=== PATIENT | female | born 1995 | race Caucasian/White ===

== ENCOUNTER 2017-02-08 21:16 | Emergency (ER) | payer OTHER ==
--- NOTE | 2017-02-08 21:47 | UC ---
Upper Extremity HPI - HPI Summary HPI Summary: 21 year old female presents with complains of right shoulder pain. - History of Current Complaint Chief Complaint: UCUpperExtremity Stated Complaint: RIGHT ARM NUMBNESS/TINGLING Time Seen by Provider: 02/08/17 21:22 Hx Last Menstrual Period: 01/31/17 - Allergies/Home Medications Allergies/Adverse Reactions: Allergies Allergy/AdvReac Type Severity Reaction Status Date / Time No Known Allergies Allergy Verified 02/08/17 21:24 Home Medications: Home Medications ARIPiprazole TAB* [Abilify TAB*] 2 mg PO DAILY 02/08/17 [History Confirmed 01/18] Cetirizine* [ZyrTEC 10 MG TAB*] 10 mg PO DAILY 02/08/17 [History Confirmed 02/08] Oral Contraceptives DAILY 02/08/17 [History] PMH/Surg Hx/FS Hx/Imm Hx Previously Healthy: Yes - Surgical History Surgical History: Yes Surgery Procedure, Year, and Place: T&A. Appy. [place] teeth - Social History Alcohol Use: None Substance Use Type: None Smoking Status (MU): Never Smoked Tobacco Review of Systems Constitutional: Negative Skin: Negative Eyes: Negative ENT: Negative Respiratory: Negative Cardiovascular: Negative Gastrointestinal: Negative Genitourinary: Negative Motor: Negative Neurovascular: Negative Musculoskeletal: Myalgia, Other: - right shoulder pain Neurological: Negative Psychological: Negative All Other Systems Reviewed And Are Negative: Yes Physical Exam Triage Information Reviewed: Yes Vital Signs: Initial Vital Signs Temp 37.4 C 02/08/17 21:19 Pulse 96 02/08/17 21:19 Resp 16 02/08/17 21:19 BP 137/78 02/08/17 21:19 Pulse Ox 99 02/08/17 21:19 Eye Exam: Normal ENT Exam: Normal Dental Exam: Normal Neck exam: Normal Neck: Positive: 1 Respiratory Exam: Normal Cardiovascular Exam: Normal Abdominal Exam: Normal Musculoskeletal Exam: Normal Musculoskeletal: Positive: Strength Limited @, ROM Limited @, Other: - right shoulder pain Neurological Exam: Normal Psychological Exam: Normal Skin Exam: Normal Upper Extremity Course/Dx - Differential Dx/Diagnosis Provider Diagnoses: right shoulder pain Discharge - Discharge Plan Condition: Stable Disposition: HOME Prescriptions: Meloxicam [Mobic] 7.5 mg PO BID #30 tab Methocarbamol TAB* [Robaxin 500 MG TAB*] 500 mg PO TID PRN #30 tab PRN Reason: Spasms Patient Education Materials: Acromioclavicular Separation (ED), Shoulder Pain ( ED) Referrals: Danny Mak MD [Medical Doctor] -
[2017-02-08] MEDS ORDERED: Ibuprofen TAB* 400 MG PO ONE (21:50)
[2017-02-08] MEDS ORDERED: Methocarbamol TAB* 500 MG PO ONE (21:52)
[2017-02-08] MEDS ORDERED: Carisoprodol TAB* 350 MG PO ONE (22:01)
--- NOTE | 2017-02-08 22:08 | RAD ---
INDICATION: Right shoulder pain since feeling a "pop" and report COMPARISON: None. TECHNIQUE: 4 views of the right shoulder were obtained. FINDINGS: The adequately corticated bones are in normal alignment. Joint spaces appear maintained. No fracture, dislocation or focal bony abnormality is seen. IMPRESSION: Normal radiograph of the right shoulder. If the patient's symptoms persist, follow-up imaging is recommended.
== END 2017-02-08 22:17 | disposition home or self-care (01) ==
LOC: UCCORT 21:16
DX: M25.511 Pain in right shoulder (principal); R20.0 Anesthesia of skin
CPT/HCPCS: 99203; A9270-GY; G0463

== ENCOUNTER 2019-07-20 12:47 | Emergency (ER) | payer BC, OTHER ==
[2019-07-20 14:52] VITALS: BP 125/71
--- NOTE | 2019-07-20 15:05 | UC ---
FLU HPI - HPI Summary HPI Summary: 24-year-old female who started extrinsic flulike symptoms last evening with body aches, fever, chills, scratchy throat, dry cough, headache. - History of Current Complaint Chief Complaint: UCGeneralIllness Stated Complaint: BODY ACHES,HEADACHE,NAUSEA,ST Time Seen by Provider: 07/20/19 14:38 Hx Obtained From: Patient Hx Last Menstrual Period: 07/13/19 ?: No Onset/Duration: Sudden Onset Severity Currently: Moderate Severity Initially: Moderate Pain Intensity: 4 Associated Signs & Symptoms: Positive: Fever, Myalgia, Cough - Dry nonproductive cough, Sore Throat - Scratchy throat, Nasal Congestion - Runny nose, Headache - Headache Related Hx: Possible Flu/Infectious Exposure - She works in an elementary school. - Allergy/Home Medications Allergies/Adverse Reactions: Allergies Allergy/AdvReac Type Severity Reaction Status Date / Time No Known Allergies Allergy Verified 07/20/19 14:46 Home Medications: Home Medications Fexofenadine/Pseudoephedrine [Lindsay-D 24 Hour Tablet] 1 tab PO DAILY 07/20/19 [History Confirmed 07/20/19] Ibuprofen TAB* [Advil TAB*] 2 tab PO ONCE 07/20/19 [History Confirmed 07/20/19] Pseudoephedrine HCl [Sudafed] 1 tab PO ONCE 07/20/19 [History Confirmed 07/20/19 ] PMH/Surg Hx/FS Hx/Imm Hx Previously Healthy: Yes - Surgical History Surgical History: Yes Surgery Procedure, Year, and Place: T&A. Appendectomy. [place] teeth - Family History Known Family History: Positive: Other Negative: Hypertension, Diabetes - Social History Occupation: Employed Full-time Lives: With Family Alcohol Use: None Substance Use Type: None Smoking Status (MU): Never Smoked Tobacco Review of Systems All Other Systems Reviewed And Are Negative: Yes Constitutional: Positive: Fever, Chills ENT: Positive: Sore Throat - Scratchy throat, Nasal Discharge - Clear nasal coryza Respiratory: Positive: Cough - Dry nonproductive cough Musculoskeletal: Positive: Myalgia Neurological: Positive: Headache - Mild headache Is Patient Immunocompromised?: No Physical Exam Triage Information Reviewed: Yes Appearance: Well-Appearing, No Pain Distress, Well-Nourished Vital Signs: Initial Vital Signs Temp 99 F 07/20/19 14:48 Pulse 97 01/16/20 14:48 Resp 14 07/20/19 14:48 BP 125/71 07/20/19 14:48 Pulse Ox 99 07/20/19 14:48 Vital Signs Reviewed: Yes Eyes: Positive: Conjunctiva Clear ENT: Positive: Hearing grossly normal, Pharynx normal, TMs normal, Uvula midline Neck: Positive: Supple, Nontender, No Lymphadenopathy Respiratory: Positive: Lungs clear, Normal breath sounds, No respiratory distress, No accessory muscle use Cardiovascular: Positive: RRR, No Murmur, Pulses Normal, Brisk Capillary Refill Musculoskeletal Exam: Normal Neurological Exam: Normal Psychological Exam: Normal Skin Exam: Normal Flu Course/Dx - Course Course Of Treatment: Rapid influenza test: Negative Patient is comfortable here and nontoxic. - Differential Dx/Diagnosis Provider Diagnosis: Flu-like symptoms Discharge ED - Sign-Out/Discharge Documenting (check all that apply): Patient Departure All imaging exams completed and their final reports reviewed: No Studies - Discharge Plan Condition: Fair Disposition: HOME Patient Education Materials: Upper Respiratory Infection (ED) Forms: *Work Release Referrals: [facility] [Outside] No Primary Care Phys,NOPCP [Primary Care Provider] - Additional Instructions: Increase fluids, may take [id number] cold medicine as directed, follow-up with your primary care provider or [facility] if no improvement in 3 or 4 days - Billing Disposition and Condition Condition: FAIR Disposition: Home - Attestation Statements Provider Attestation: This patient was not seen by me I was available for consult Chart reviewed GONZALEZ
[2019-07-20 15:25] LABS: Influenza A Molecular NEGATIVE (Negative); Influenza B Molecular NEGATIVE (Negative)
== END 2019-07-20 15:43 | disposition home or self-care (01) ==
LOC: UCCORT 12:47
DX: J02.9 Acute pharyngitis, unspecified (principal); R50.9 Fever, unspecified; M79.10 Myalgia, unspecified site; R05 Cough; R51 Headache; R09.81 Nasal congestion
CPT/HCPCS: 99211; G0463

== ENCOUNTER 2019-07-25 15:49 | Emergency (ER) | payer BC ==
--- NOTE | 2019-07-25 16:27 | UC ---
FLU HPI - HPI Summary HPI Summary: 24 yo female presents with URI symptoms. She tells me that she was seen here a few days ago and flu test was negative. Had similar symptoms at that time, but states cough is worse. She has been feeling feverish, but has not taken her temperature. Mild sinus congestion. Has been taking ibuprofen and pedro luis with little relief. Denies sore throat, SOB, chest pain, abdominal pain, n/v. - History of Current Complaint Stated Complaint: ACHY/UPSET STOMACH/COUGH/CONGESTION Time Seen by Provider: 07/25/19 16:26 Hx Obtained From: Patient Hx Last Menstrual Period: 07/13/19 Onset/Duration: Gradual Onset Severity Currently: Moderate Severity Initially: Moderate Pain Intensity: 5 Pain Scale Used: 0-10 Numeric - Allergy/Home Medications Allergies/Adverse Reactions: Allergies Allergy/AdvReac Type Severity Reaction Status Date / Time No Known Allergies Allergy Verified 07/25/19 16:46 PMH/Surg Hx/FS Hx/Imm Hx - Additional Past Medical History Additional PMH: None - Surgical History Surgical History: Yes Surgery Procedure, Year, and Place: T&A. Appendectomy. [place] teeth - Family History Known Family History: Positive: Other Negative: Hypertension, Diabetes - Social History Lives: With Family Alcohol Use: None Substance Use Type: None Smoking Status (MU): Never Smoked Tobacco Review of Systems All Other Systems Reviewed And Are Negative: No Constitutional: Positive: Negative Skin: Positive: Negative Eyes: Positive: Negative ENT: Positive: Sinus Congestion, Sinus Pain/Tenderness Respiratory: Positive: Cough Cardiovascular: Positive: Negative Gastrointestinal: Positive: Negative Neurological: Positive: Negative Psychological: Positive: Negative Physical Exam - Summary Physical Exam Summary: GENERAL: NAD. WDWN. No pain distress. SKIN: No rashes, sores, lesions, or open wounds. HEENT: Head: AT/NC Eyes: Conjunctiva clear without inflammation or discharge. Ears: Hearing grossly normal. TMs intact, no bulging, erythema, or edema. Nose: Nasal mucosa pink and moist. NTTP maxillary and frontal sinus. Throat: Posterior oropharynx without exudates, erythema, or tonsillar enlargement. Uvula midline. NECK: Supple. Nontender. No lymphadenopathy. CHEST: Mild wheezing throughout. No r/r. No accessory muscle use. Breathing comfortably and in no distress. CV: RRR. Pulses intact. Cap refill <2seconds NEURO: Alert. PSYCH: Age appropriate behavior. Triage Information Reviewed: Yes Vital Signs: Vital Signs: Temp Pulse Resp BP Pulse Ox 99.5 F 100 16 143/74 100 07/25/19 16:35 07/25/19 16:35 07/25/19 16:35 07/25/19 16:35 07/25/19 16:35 Vital Signs Reviewed: Yes Diagnostics - Radiology CXR Radiology Interpretation Completed By: Radiologist Summary of Radiographic Findings: IMPRESSION: #. Elevated lung volumes may reflect obstructive lung disease or simply exuberant inspiratory effort for examination in a young patient. #. No evidence for pneumonia. Flu Course/Dx - Course Course Of Treatment: CXR as above. Given her continued symptoms will treat with anbx at this time. - Differential Dx/Diagnosis Provider Diagnosis: Bronchitis Discharge ED - Sign-Out/Discharge Documenting (check all that apply): Patient Departure All imaging exams completed and their final reports reviewed: Yes - Discharge Plan Condition: Stable Disposition: HOME Prescriptions: Albuterol HFA INHALER* [Ventolin HFA Inhaler*] 1 puff INH Q6H PRN #1 mdi PRN Reason: Cough Azithromycin TAB* [Zithromax TAB (Z-MIRANDA) 250 mg #6 tabs] 2 tab PO .TODAY, THEN 1 DAILY #1 miranda Patient Education Materials: Acute Bronchitis (ED) Referrals: No Primary Care Phys,NOPCP [Primary Care Provider] - Additional Instructions: If you develop a fever, shortness of breath, chest pain, new or worsening symptoms - please call your PCP or go to the ED immediately. - Billing Disposition and Condition Condition: STABLE Disposition: Home
[2019-07-25 16:46] VITALS: BP 143/74
== END 2019-07-25 17:01 | disposition home or self-care (01) ==
LOC: UCCORT 15:49
DX: J40 Bronchitis, not specified as acute or chronic (principal); R09.81 Nasal congestion; J34.89 Other specified disorders of nose and nasal sinuses; J98.4 Other disorders of lung
CPT/HCPCS: 71046; 99212; G0463

== ENCOUNTER 2019-08-08 11:41 | Emergency (ER) | payer BC ==
[2019-08-08 12:08] VITALS: BP 120/70
--- NOTE | 2019-08-08 12:13 | UC ---
FLU HPI - HPI Summary HPI Summary: 24-year-old female presents with complaints of fever, nasal congestion, runny nose, sore throat, and occasional nonproductive cough that started yesterday. Denies headache, body aches, ear pain, dysphagia, chest pain, shortness of breath, abdominal pain, nausea, vomiting, or diarrhea. - History of Current Complaint Chief Complaint: UCRespiratory Stated Complaint: FLU/STREP TESTING Time Seen by Provider: 08/08/19 12:02 Hx Obtained From: Patient Hx Last Menstrual Period: 25 days ago Pain Intensity: 3 - Allergy/Home Medications Allergies/Adverse Reactions: Allergies Allergy/AdvReac Type Severity Reaction Status Date / Time environmental Allergy Eyes Uncoded 08/08/19 12:09 Itchy/Swollen/Red/Watery PMH/Surg Hx/FS Hx/Imm Hx Previously Healthy: Yes - Surgical History Surgical History: Yes Surgery Procedure, Year, and Place: T&A. Appendectomy. [place] teeth - Family History Known Family History: Positive: Non-Contributory - Social History Occupation: Employed Full-time Lives: Alone Alcohol Use: None Substance Use Type: None Smoking Status (MU): Never Smoked Tobacco Review of Systems All Other Systems Reviewed And Are Negative: Yes Constitutional: Positive: Fever Eyes: Negative: Drainage, Eye Redness ENT: Positive: Sore Throat, Nasal Discharge, Sinus Congestion, Sinus Pain/ Tenderness. Negative: Ear Ache Respiratory: Positive: Cough. Negative: Shortness Of Breath Cardiovascular: Negative: Palpitations, Chest Pain Gastrointestinal: Negative: Abdominal Pain, Vomiting, Diarrhea, Nausea Genitourinary: Positive: Negative Musculoskeletal: Positive: Negative Neurological: Positive: Negative Is Patient Immunocompromised?: No Physical Exam - Summary Physical Exam Summary: GENERAL APPEARANCE: Well developed, well nourished, alert and cooperative, and appears to be in no acute distress. EYES: Conjunctiva clear. No drainage. EARS: External auditory canals and tympanic membranes clear, hearing grossly intact. NOSE: Mild nasal congestion. No nasal discharge. THROAT: Mild pharyngeal erythema. Surgically absent tonsils. Uvula midline. NECK: Neck supple, non-tender without lymphadenopathy. CARDIAC: Normal S1 and S2. No S3, S4 or murmurs. Rhythm is regular. There is no peripheral edema, cyanosis or pallor. Extremities are warm and well perfused. Capillary refill is less than 2 seconds. Peripheral pulses intact. LUNGS: Clear to auscultation without rales, rhonchi, wheezing or diminished breath sounds. Cough is not observed. ABDOMEN: Positive bowel sounds. Soft, nondistended, nontender. No guarding or rebound. No masses or hepatosplenomegally. MUSKULOSKELETAL: ROM intact to all extremities. No joint erythema or tenderness. Normal muscular development. Normal gait. SKIN: Skin normal color, texture and turgor with no lesions or eruptions. Triage Information Reviewed: Yes Vital Signs: Initial Vital Signs Temp 98.3 F 08/08/19 12:04 Pulse 76 08/08/19 12:04 Resp 13 08/08/19 12:04 BP 120/70 08/08/19 12:04 Pulse Ox 100 08/08/19 12:04 Vital Signs Reviewed: Yes Flu Course/Dx - Course Course Of Treatment: 24-year-old female presents with complaints of fever, nasal congestion, runny nose, sore throat, and occasional nonproductive cough that started yesterday. Denies headache, body aches, ear pain, dysphagia, chest pain, shortness of breath, abdominal pain, nausea, vomiting, or diarrhea. Afebrile. Vital signs stable. Patient had mild nasal congestion, normal TMs, pharyngeal erythema, surgically absent tonsils, no cervical lymphadenopathy, clear bilateral breath sounds, and otherwise unremarkable exam. Rapid strep test and rapid flu test were negative. Reviewed results with the patient. Recommending symptomatic treatment for a viral breast or infection. She is to follow-up here or with primary care in 5-7 days if symptoms are not improving. Anticipatory guidance and warning symptoms reviewed with the patient. Verbalizes understanding and agrees with plan of care. - Differential Dx/Diagnosis Differential Diagnosis/HQI/PQRI: Bronchitis, Influenza, Pneumonia, Upper Respiratory Infection, Other - Tonsilitis, pharyngitis Provider Diagnosis: Viral upper respiratory infection Discharge ED - Sign-Out/Discharge Documenting (check all that apply): Patient Departure All imaging exams completed and their final reports reviewed: No Studies - Discharge Plan Condition: Stable Disposition: HOME Patient Education Materials: Upper Respiratory Infection (ED) Referrals: No Primary Care Phys,NOPCP [Primary Care Provider] - [facility] [place] [facility] [Outside] Additional Instructions: The rapid flu test and rapid strep test performed in the clinic today were negative. Your history and exam are consistent with a viral upper respiratory infection. Viral infections do not respond to antibiotics and are limited to the treatment of symptoms. Viral infections typically run their course in 7-10 days. Drink plenty of fluids to avoid dehydration especially if you are running any fever. Use a saline rinse kit such as Neti Pot or NeilMed at least twice a day to help thin secretions and promote drainage of the sinuses. Use fluticasone (Flonase) nasal spray 2 sprays each nostril once daily. Use an over the counter decongestant such as Sudafed according to directions for any nasal congestion. Take over the counter acetaminophen (Tylenol) or ibuprofen (Advil, Motrin) according to directions as needed for pain or fever. Use salt water gargles several times a day if you have a sore throat. You may also use Chloraseptic spray or Cepacol lonzenges according to directions which contain a numbing medication and can provide some temporary relief from your sore throat. Return here of follow up with primary care in 7 days if symptoms persist. I have provided you with the contact information for the [facility] physician referral service if you need assistance with establishing with your provider. Seek immediate medical attention in the emergency room if you have fever greater than 100.5 F despite taking acetaminophen or ibuprofen, have chest pain , difficulty breathing, are unable to swallow, or have any worsening of symptoms. - Billing Disposition and Condition Condition: STABLE Disposition: Home
[2019-08-08 12:23] LABS: Influenza A Molecular Negative (Negative); Influenza B Molecular Negative (Negative)
== END 2019-08-08 12:54 | disposition home or self-care (01) ==
LOC: UCCORT 11:41
DX: J06.9 Acute upper respiratory infection, unspecified (principal); Z91.09 Other allergy status, other than to drugs and biological substances
CPT/HCPCS: 87651; 99211; G0463